=== PATIENT | female | born 1940 | race Caucasian/White ===

== ENCOUNTER 2017-12-01 08:22 | Inpatient (IN) | payer OTHER ==
[~2017-12-01] VITALS: Ht 157.5 cm; Wt 82.5 kg
[2017-12-01] MEDS ORDERED: FLUT110A INH (09:09)
[2017-12-01] MEDS ORDERED: METO25TA5 PO (09:09)
[2017-12-01] MEDS ORDERED: FURO20TA3 PO (09:09)
[2017-12-01] MEDS ORDERED: TRAZ-181 PO (09:09)
[2017-12-01] MEDS ORDERED: GABA100C9 PO (09:09)
[2017-12-01] MEDS ORDERED: WARF3TAB22 PO (09:09)
[2017-12-01] MEDS ORDERED: CLON0.1T PO (09:09)
[2017-12-01] MEDS ORDERED: ALEN70TA55 PO (09:09)
[2017-12-01] MEDS ORDERED: LEVO75TA6 PO (09:09)
[2017-12-01] MEDS ORDERED: AMLO10TA2 PO (09:09)
[2017-12-01] MEDS ORDERED: OMEP20TA PO (09:09)
[2017-12-01] MEDS ORDERED: POTA20TA53 PO (09:09)
[2017-12-01 09:15] LABS: Urine Bacteria NONE SEEN /hpf (None Seen); Urine Blood Negative /uL (Negative); Urine Specific Gravity 1.009 (1.001-1.035); Urine WBC 4 /hpf (0 - 5)
[2017-12-01 09:55] LABS: Basophils # (auto) 0.1 uL; Eosinophils # (auto) 0.1 uL; Lymphocytes % (auto) 8.1 % (10.0-50.0); Mean Corpuscular Hemoglobin 17.3 pg (28.0-32.0); Neutrophils % (auto) 83.7 % (37.0-80.0)
[2017-12-01 09:57] LABS: Basophils % (auto) 0.8 % (0.0-2.0); Eosinophils % (auto) 0.9 % (0.0-7.0); Hematocrit 27.2 % (36.0-46.0); Lymphocytes # (auto) 0.7 uL; Mean Corpuscular Hgb Conc. 29.3 g/dL (32.0-36.0); Mean Corpuscular Volume 59.1 fL (80.0-100.0); Monocytes # (auto) 0.6 uL; Monocytes % (auto) 6.5 % (0.0-12.0); Neutrophils # (auto) 7.7 uL; Platelet Count (auto) 240 10^3/uL (140-450); Red Blood Cells 4.59 10^6/uL (4.0-5.20); Red Cell Distribution Width 19.4 % (11.8-14.3); White Blood Cell 9.1 10^3/uL (4.4-10.8)
[2017-12-01 10:16] LABS: Alanine Aminotransferase 17 U/L (13-56); Albumin 3.2 g/dL (3.4-5.0); Anion Gap 9 (5-15); Aspartate Aminotransferase 15 U/L (15-37); BUN/Creatinine Ratio 19.7; Blood Urea Nitrogen 13 mg/dL (7-18); Calcium 8.3 mg/dL (8.5-10.1); Carbon Dioxide 27 mmol/L (21-32); Chloride 105 mmol/L (98-107); GFR African American 111 mL/min; GFR Non-African American 92 mL/min; Glucose 110 mg/dL (74-106); Potassium 3.8 mmol/L (3.5-5.1); Sodium 141 mmol/L (136-145)
[2017-12-01 10:21] LABS: Alkaline Phosphatase 74 U/L (45-117); Bilirubin, Total 0.7 mg/dL (0.2-1.0)
[2017-12-01] MEDS ORDERED: GABAPENTIN 300 MG CAP PO ONE (10:30)
[2017-12-01] MEDS ORDERED: FUROSEMIDE 40 MG/4 ML VIAL IV ONE (10:30)
[2017-12-01] MEDS ORDERED: cloNIDine HCL 0.1 MG TAB PO ONE (10:30)
[2017-12-01] MEDS ORDERED: METOPROLOL TARTRATE 25 MG TAB PO ONE (10:30)
[2017-12-01] MEDS ORDERED: amLODIPine BESYLATE 5 MG TAB PO ONE (10:30)
[2017-12-01] MEDS ORDERED: POTASSIUM CHL 10% (20 MEQ/15ML) 15ml ORAL SOLN PO ONE (10:30)
[2017-12-01] MEDS ORDERED: IPRATROPIUM BROM 0.5 MG/2.5ML INH SOL NEB ONE (11:00)
[2017-12-01] MEDS ORDERED: ALBUTEROL SULF 2.5 MG/0.5ML(0.5%) NEB SOLN NEB ONE (11:00)
[2017-12-01] MEDS ORDERED: cloNIDine HCL 0.1 MG TAB PO PRN (14:00)
[2017-12-01] MEDS ORDERED: ONDANSETRON HCL 4 MG/2 ML VIAL IV PRN (14:15)
[2017-12-01] MEDS ORDERED: HYDROcodone-ACET 5/325MG TAB PO PRN (14:15)
[2017-12-01] MEDS ORDERED: cefTRIAXone 1GM/10ml IVPUSH 10 ML IV ONE (14:15)
[2017-12-01] MEDS ORDERED: TEMAZEPAM 15 MG CAP PO PRN (14:15)
[2017-12-01] MEDS ORDERED: MORPHINE SULFATE 8mg/ml INJ SDV IV PRN ×2 (14:15)
[2017-12-01] MEDS ORDERED: AZITHROMYCIN 500MG/ 250ML 250 ML IV ONE (14:15)
[2017-12-01] MEDS ORDERED: NITROGLYCERIN 0.4 MG SL TAB SL PRN (14:15)
[2017-12-01 15:11] VITALS: BP 110/89
[2017-12-01 15:56] VITALS: BP 113/71
[2017-12-01 16:32] VITALS: BP 113/71
[2017-12-01] MEDS: FUROSEMIDE 40 MG/4 ML VIAL IV SCH (17:22)
[2017-12-01 17:25] LABS: INR 3.55 (0.9-1.15); Partial Thromboplastin Time 36.9 sec (23.78-33.04); Prothrombin Time 35.4 sec (9.27-12.13)
[2017-12-01] MEDS: DOCUSATE SOD 100 MG CAP PO PRN (18:02)
[2017-12-01] MEDS: BUDESONIDE (INHALATION) 0.5 MG/2 ML NEB NEB SCH (19:06)
[2017-12-01] MEDS: ALBUTEROL SULF 2.5 MG/0.5ML(0.5%) NEB SOLN NEB SCH (19:06)
[2017-12-01 22:00] VITALS: BP 128/65
[2017-12-01] MEDS ORDERED: POTASSIUM CHL 10 Meq TABLET PO SCH (22:00)
[2017-12-01] MEDS ORDERED: PATIENTS OWN MEDICATION IN SCH (22:00)
[2017-12-01] MEDS ORDERED: FAMOTIDINE 20 MG TAB PO SCH (22:00)
[2017-12-01] MEDS: GABAPENTIN 100 MG CAP PO SCH (22:15)
[2017-12-01] MEDS: traZODone HCL 50 MG TAB PO SCH (22:16)
[2017-12-01] MEDS: METOPROLOL TARTRATE 25 MG TAB PO SCH (22:17)
[2017-12-01] MEDS: SODIUM CHLOR 0.9% PF (SALINE LOCK) 10ML VIAL/SYR IV SCH (22:18)
[2017-12-01] MEDS: ACETAMINOPHEN 325 MG TAB PO PRN (22:18)
[2017-12-01] MEDS: POTASSIUM CHL 20 Meq TABLET PO SCH (22:18)
[2017-12-02] MEDS: ALBUTEROL SULF 2.5 MG/0.5ML(0.5%) NEB SOLN NEB SCH ×4 (00:40→18:51)
[2017-12-02 05:00] VITALS: BP 139/73
[2017-12-02 06:23] LABS: Basophils # (auto) 0.1 uL; Eosinophils # (auto) 0.1 uL; Eosinophils % (auto) 1.2 % (0.0-7.0); Monocytes # (auto) 0.9 uL; Neutrophils # (auto) 6.4 uL; Nucleated Red Blood Cells % 0.1 %; White Blood Cell 8.8 10^3/uL (4.4-10.8)
[2017-12-02] MEDS: BUDESONIDE (INHALATION) 0.5 MG/2 ML NEB NEB SCH ×2 (06:23→18:52)
[2017-12-02 06:25] LABS: Basophils % (auto) 0.9 % (0.0-2.0); Hematocrit 25.8 % (36.0-46.0); Hemoglobin 7.7 g/dL (12.2-16.2); Lymphocytes # (auto) 1.4 uL; Lymphocytes % (auto) 15.5 % (10.0-50.0); Mean Corpuscular Hemoglobin 17.5 pg (28.0-32.0); Mean Corpuscular Hgb Conc. 29.8 g/dL (32.0-36.0); Mean Corpuscular Volume 58.9 fL (80.0-100.0); Neutrophils % (auto) 72.4 % (37.0-80.0); Platelet Count (auto) 232 10^3/uL (140-450); Red Blood Cells 4.39 10^6/uL (4.0-5.20)
[2017-12-02 06:28] LABS: Albumin 3.1 g/dL (3.4-5.0); BUN/Creatinine Ratio 16.2; Calcium 8.3 mg/dL (8.5-10.1); Potassium 3.9 mmol/L (3.5-5.1)
[2017-12-02 06:31] LABS: Bilirubin, Total 0.7 mg/dL (0.2-1.0); INR 2.52 (0.9-1.15); Partial Thromboplastin Time 34.7 sec (23.78-33.04); Prothrombin Time 25.6 sec (9.27-12.13); Total Protein 6.7 g/dL (6.4-8.2)
[2017-12-02] MEDS: SODIUM CHLOR 0.9% PF (SALINE LOCK) 10ML VIAL/SYR IV SCH ×3 (06:38→22:03)
[2017-12-02] MEDS: GABAPENTIN 100 MG CAP PO SCH ×3 (06:38→22:03)
[2017-12-02] MEDS: LEVOTHYROXINE SODIUM 25 MCG TAB PO SCH (06:38)
[2017-12-02] MEDS: FUROSEMIDE 40 MG/4 ML VIAL IV SCH ×3 (06:38→18:04)
[2017-12-02 06:40] LABS: Red Cell Distribution Width 20.5 % (11.8-14.3)
[2017-12-02 08:30] VITALS: BP 152/95
[2017-12-02] MEDS: MULTIPLE VITAMIN TAB PO SCH (10:21)
[2017-12-02] MEDS: amLODIPine BESYLATE 5 MG TAB PO SCH (10:21)
[2017-12-02] MEDS: PANTOPRAZOLE 40 MG TAB PO SCH (10:21)
[2017-12-02] MEDS: POTASSIUM CHL 20 Meq TABLET PO SCH ×2 (10:21→22:03)
[2017-12-02] MEDS: METOPROLOL TARTRATE 25 MG TAB PO SCH ×2 (10:22→22:03)
[2017-12-02] MEDS: cefTRIAXone 1GM/10ml IVPUSH 10 ML IV SCH (10:23)
[2017-12-02] MEDS: AZITHROMYCIN 500MG/ 250ML 250 ML IV SCH (10:23)
[2017-12-02] MEDS: ACETAMINOPHEN 325 MG TAB PO PRN (11:40)
[2017-12-02 12:30] VITALS: BP 107/65
[2017-12-02] MEDS ORDERED: WARFARIN SODIUM 2.5 MG TAB PO ONE (17:00)
[2017-12-02 17:37] VITALS: BP 137/84
[2017-12-02 22:00] VITALS: BP 149/73
[2017-12-02] MEDS: traZODone HCL 50 MG TAB PO SCH (22:03)
[2017-12-03] MEDS: ALBUTEROL SULF 2.5 MG/0.5ML(0.5%) NEB SOLN NEB SCH ×4 (00:35→18:28)
[2017-12-03 05:00] VITALS: BP 134/71
[2017-12-03] MEDS: FUROSEMIDE 40 MG/4 ML VIAL IV SCH (05:24)
[2017-12-03] MEDS: GABAPENTIN 100 MG CAP PO SCH ×2 (05:24→14:18)
[2017-12-03] MEDS: SODIUM CHLOR 0.9% PF (SALINE LOCK) 10ML VIAL/SYR IV SCH ×2 (05:24→14:00)
[2017-12-03] MEDS: DOCUSATE SOD 100 MG CAP PO PRN (05:24)
[2017-12-03] MEDS: LEVOTHYROXINE SODIUM 25 MCG TAB PO SCH (05:25)
[2017-12-03] MEDS: BUDESONIDE (INHALATION) 0.5 MG/2 ML NEB NEB SCH ×2 (06:34→18:29)
[2017-12-03 07:07] LABS: INR 1.57 (0.9-1.15); Partial Thromboplastin Time 31.1 sec (23.78-33.04); Prothrombin Time 16.4 sec (9.27-12.13)
[2017-12-03 07:11] LABS: Basophils # (auto) 0.1 uL; Eosinophils # (auto) 0.1 uL; Monocytes # (auto) 0.9 uL
[2017-12-03 07:14] LABS: Eosinophils % (auto) 0.9 % (0.0-7.0); Hematocrit 26.7 % (36.0-46.0); Lymphocytes # (auto) 1.3 uL; Lymphocytes % (auto) 12.8 % (10.0-50.0); Mean Corpuscular Hemoglobin 17.6 pg (28.0-32.0); Mean Corpuscular Hgb Conc. 30.1 g/dL (32.0-36.0); Mean Corpuscular Volume 58.6 fL (80.0-100.0); Monocytes % (auto) 8.5 % (0.0-12.0); Neutrophils # (auto) 7.7 uL; Neutrophils % (auto) 76.8 % (37.0-80.0); Nucleated Red Blood Cells % 0.1 %; Platelet Count (auto) 251 10^3/uL (140-450); Red Blood Cells 4.55 10^6/uL (4.0-5.20); Red Cell Distribution Width 19.7 % (11.8-14.3)
[2017-12-03 08:57] VITALS: BP 130/69
[2017-12-03] MEDS: cefTRIAXone 1GM/10ml IVPUSH 10 ML IV SCH (09:38)
[2017-12-03] MEDS: POTASSIUM CHL 20 Meq TABLET PO SCH (09:44)
[2017-12-03] MEDS: PANTOPRAZOLE 40 MG TAB PO SCH (09:44)
[2017-12-03] MEDS: MULTIPLE VITAMIN TAB PO SCH (09:44)
[2017-12-03] MEDS: amLODIPine BESYLATE 5 MG TAB PO SCH (09:45)
[2017-12-03] MEDS: AZITHROMYCIN 500MG/ 250ML 250 ML IV SCH (09:45)
[2017-12-03] MEDS: METOPROLOL TARTRATE 25 MG TAB PO SCH (09:45)
[2017-12-03] MEDS ORDERED: METOPROLOL TARTRATE 25 MG TAB PO ONE (10:30)
[2017-12-03] MEDS ORDERED: POLYETHYLENE GLYCOL 17 GM PWDR PO PRN (11:30)
[2017-12-03 12:14] LABS: % Iron Saturation 5.5 % (15-50)
[2017-12-03] MEDS: DOCUSATE SOD 100 MG CAP PO SCH ×2 (12:15→14:18)
[2017-12-03 12:43] VITALS: BP 120/79
[2017-12-03] MEDS ORDERED: LACTULOSE 20Gm/30ML SOLN PO ONE (14:00)
[2017-12-03 17:00] VITALS: BP 115/69
[2017-12-03] MEDS ORDERED: WARFARIN SODIUM 2 MG TAB PO ONE (17:00)
[2017-12-03] MEDS ORDERED: DOCU100C8 PO (17:32)
[2017-12-03] MEDS ORDERED: FER325T PO (17:32)
[2017-12-03] MEDS ORDERED: LACT10SO3 PO (17:32)
[2017-12-03] MEDS ORDERED: MET25T PO (17:32)
[2017-12-03 19:07] VITALS: BP 115/69
[2017-12-03] MEDS ORDERED: METOPROLOL TARTRATE 25 MG TAB PO SCH (22:00)
[2017-12-06] MEDS ORDERED: ALENDRONATE SODIUM 10 MG TAB PO SCH (06:00)
== END 2017-12-03 20:40 | disposition home health service (06) | DRG 205 ==
LOC: ER 08:26 → TELE 08:27 → TELE-WESTW 15:37
PROVIDERS: ADMIT Internal Medicine; ATTEND Internal Medicine
DX: M94.0 Chondrocostal junction syndrome [Tietze] (principal); I50.43 Acute on chronic combined systolic (congestive) and diastolic (congestive) heart failure; E44.0 Moderate protein-calorie malnutrition; J45.901 Unspecified asthma with (acute) exacerbation; I48.92 Unspecified atrial flutter; I48.1 Persistent atrial fibrillation; E83.51 Hypocalcemia; I11.0 Hypertensive heart disease with heart failure; M81.0 Age-related osteoporosis without current pathological fracture; D63.8 Anemia in other chronic diseases classified elsewhere; E03.9 Hypothyroidism, unspecified; I27.20 Pulmonary hypertension, unspecified; I48.2 Chronic atrial fibrillation; I48.0 Paroxysmal atrial fibrillation; K59.00 Constipation, unspecified; K21.9 Gastro-esophageal reflux disease without esophagitis; G47.00 Insomnia, unspecified; D50.9 Iron deficiency anemia, unspecified; Z79.01 Long term (current) use of anticoagulants; Z83.3 Family history of diabetes mellitus; Z90.710 Acquired absence of both cervix and uterus; Z90.49 Acquired absence of other specified parts of digestive tract
CPT/HCPCS: 36415; 71045; 80053; 81001; 82270; 83540; 83550; 83880; 84484; 85025; 85610; 85730; 87040; 93005; 93306; 94640; 96365; 96375